=== PATIENT | male | born 1990 | race Hispanic/Latino ===

== ENCOUNTER 2022-01-26 14:58 | Emergency (ER) | payer OTHER ==
[2022-01-26 15:06] VITALS: O2SAT 100
[2022-01-26] MEDS ORDERED: XYLOCAINE 2% HCL 20 ML MDV ONE (15:43)
--- NOTE | 2022-01-26 16:10 | ERPHSYRPT ---
- History of Present Illness Time Seen by Provider: 01/26/22 15:11 Source: patient Exam Limitations: no limitations Patient Subjective Stated Complaint: PT states "I was using a nail gun and got my hand." Triage Nursing Assessment: Pt prsented alert and oriented X 3, skin pwd Pt ambulates with an upright steady gait, able to speak in clear full sentences pt has a nail in left nad between thumb and index finger, index finger slightly numb. 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 Moderate to severe sharp pain with minimal movements at index and thumb area. Up-to-date with tetanus. Occurred: just prior to arrival Method of Injury: other Quality: sharpness Severity of Pain-Max: severe Severity of Pain-Current: severe Extremities Pain Location: hand: left Modifying Factors: Improves With: immobilization. Worsens With: movement Associated Symptoms: none Allergies/Adverse Reactions: No Known Drug Allergies Allergy (Verified 01/26/22 15:06) Hx Tetanus, Diphtheria Vaccination/Date Given: Yes Hx Influenza Vaccination/Date Given: No Hx Pneumococcal Vaccination/Date Given: No Immunizations Up to Date: Yes Travel Risk - International Travel Have you traveled outside of the country in past 3 weeks: No - Coronavirus Screening Are you exhibiting any of the following symptoms?: No Close contact with a COVID-19 positive Pt in past 14-21 Days: No - Vaccine Status Have you recieved a Covid-19 vaccination: No - Review of Systems Constitutional: No Symptoms Eyes: No Symptoms Ears, Nose, & Throat: No Symptoms Respiratory: No Symptoms Cardiac: No Symptoms Abdominal/Gastrointestinal: No Symptoms Genitourinary Symptoms: No Symptoms Musculoskeletal: Injury Skin: Skin Lesions Neurological: No Symptoms Endocrine: No Symptoms Hematologic/Lymphatic: No Symptoms Immunological/Allergic: No Symptoms - Past Medical History Pertinent Past Medical History: No - Past Surgical History Past Surgical History: No - Social History Smoking Status: Never smoker Exposure to second hand smoke: Yes Drug Use: none Patient Lives Alone: No - Nursing Vital Signs Nursing Vital Signs: Initial Vital Signs Temperature 98.3 F 01/26/22 15:02 Pulse Rate 78 01/26/22 15:02 Respiratory Rate 22 01/26/22 15:02 Blood Pressure 143/82 01/26/22 15:02 O2 Sat by Pulse Oximetry 100 01/26/22 15:02 Pain Scale Pain Intensity 4 - Physical Exam General Appearance: no apparent distress, alert Neck Exam: normal inspection, full range of motion Cardiovascular/Respiratory Exam: normal breath sounds, regular rate/rhythm Wrist Exam: normal inspection, non-tender, no evidence of injury, normal ROM Hand Exam: limited ROM (3 inch nail half into left hand between index and thumb on palmar aspect with painful movements at index finger. Cap refill less than 2 seconds. Sensations intact.), swelling Neuro/Tendon Exam: normal sensation, normal tendon functions Mental Status Exam: alert, oriented x 3, cooperative Skin Exam: normal color SpO2 Interpretation: normal SpO2: 100 O2 Delivery: Room Air Procedures - Nerve Block Time of Procedure: 15:45 Prepped with: Alcohol wipe Anesthesia: 2% Lidocaine Volume Anesthetic (ccs): other (15) Needle & Syringe: 25 Complications: none Progress: Left wrist block tolerated very well - Additional Procedures Progress: Procedure note. Foreign body removal left hand. Time 1545. Aseptic technique. Anesthesia local wrist block. Removed intact nail. Antibiotics and dressing applied. Ordered Tests: Active Orders 24 hr Category Date Time Status HAND (MINIMUM 3 VIEWS) Stat Exams 01/26/22 15:26 Taken Medication Summary Discontinued Medications Generic Name Dose Route Start Last Admin Trade Name Kunalq PRN Reason Stop Dose Admin Lidocaine HCl Confirm 01/26/22 15:43 Lidocaine Hcl 2% 20 Ml Mdv Administered 01/26/22 15:44 Dose 10 ml .ROUTE .STK-MED ONE - Progress Progress: improved Progress Note: 01/26/22 16:10 31 years old is evaluated for nail in the left hand. I have discussed with Dr. Pichardo and surgery Radha Chowdary, recommended local block and pulling it out. After risk block nail was removed. Patient is up-to-date with tetanus. Given antibiotics and pain medications to go home. Outpatient follow-up with hand surgery Sunday. Discussed with : Other Counseled pt/family regarding: diagnosis, need for follow-up, rad results - Departure Departure Disposition: Home Clinical Impression: Foreign body in hand Condition: Stable Critical Care Time: No Referrals: JOSE GUADALUPE KIM MD [NON-STAFF PHY W/O PRIVILEGES] - Follow up/PCP as directed (Sunday at 1 PM. Call for confirmation of appointment.) Instructions: Cellulitis (Skin Infection), Adult ED Additional Instructions: Take pain medications as needed. Keep your hand elevated, intermittent ice application. Follow-up with hand surgery for reevaluation on Sunday afternoon. Continue with antibiotics. Return to ER for increased swelling redness, pain, discharge, fever chills, difficulty movements of the fingers. Prescriptions: Hydrocodone/Acetaminophen [Hydrocodone-Acetamin 5-325 mg] 1 tab PO Q6HPRN PRN 3 Days #12 tablet MDD 4 PRN Reason: Pain Amox Tr/Potass Clav. 875 mg [Augmentin 875-125 Tablet] 875 mg PO BID #14 tablet
[2022-01-26 16:12] VITALS: BP 108/93; PULSE 68
[2022-01-26] MEDS ORDERED: Augmentin 875-125 Tablet PO ONE (16:12)
[2022-01-26] MEDS ORDERED: Augmentin 875-125 Tablet ONE (16:15)
--- NOTE | 2022-01-26 16:22 | XRAY ---
Indication: Nail injury. Comparison: None 3 view left hand demonstrates nail traversing soft tissues just anterior to 2nd/3rd metacarpals. No other bony, articular, or soft tissue abnormalities.
== END 2022-01-26 16:24 | disposition home or self-care (01) ==
LOC: MERGE 14:58 → ED 14:58
DX: S61.442A Puncture wound with foreign body of left hand, initial encounter (principal); W45.0XXA Nail entering through skin, initial encounter; W27.8XXA Contact with other nonpowered hand tool, initial encounter; Y93.H3 Activity, building and construction; Y99.0 Civilian activity done for income or pay; M79.642 Pain in left hand; Z79.891 Long term (current) use of opiate analgesic; Z28.310 Unvaccinated for COVID-19
CPT/HCPCS: 20520; 73130; 99282; A9270-GY